=== PATIENT | female | born 1990 | race Caucasian/White ===

== ENCOUNTER 2019-02-10 19:36 | Emergency (ER) | payer SELFPAY, MEDICAID ==
[2019-02-10] MEDS: HYDROCODONE/APAP (5/325) TAB PO (20:05)
== END 2019-02-10 21:38 | disposition home or self-care (01) ==
LOC: FTE 19:36
DX: S00.83XA Contusion of other part of head, initial encounter (principal); M25.531 Pain in right wrist; V86.09XA Driver of other special all-terrain or other off-road motor vehicle injured in traffic accident, initial encounter
CPT/HCPCS: 29125; 70140; 73110-RT; 81025; 99284-25